=== PATIENT | female | born 1965 | race Caucasian/White ===

== ENCOUNTER 2017-03-02 20:51 | Emergency (ER) | payer MEDICARE ==
[2017-03-02 21:17] VITALS: BP 112/80
--- NOTE | 2017-03-02 22:02 | UC ---
Respiratory Complaint HPI - HPI Summary HPI Summary: The patient comes in today for: 1. Cough, rhinitis, chest heaviness, body aches: Onset: ONe week ago. Palliative/provocative: Nothing makes her symptoms better or worse. Activity does not make her chest heaviness worse. Quality: Heaviness Region: Chest, with no radiation. Severity: 2/10 Time: Constant. Associated symptoms: Dyspnea: None. Fevers: None. CAD risk factors: smoker: (-), HTN: (-), DM: (-), previous disease: (-), FmHx: (-), Cholesterol: (?) Rhinitis: clear. Cough: dry. Wheezing: None. * - History of Current Complaint Chief Complaint: UCRespiratory Stated Complaint: COUGH,ACHES,CHEST CONGESTION Time Seen by Provider: 03/02/17 21:57 Hx Obtained From: Patient Hx Last Menstrual Period: doesnt remember - Allergies/Home Medications Allergies/Adverse Reactions: Allergies Allergy/AdvReac Type Severity Reaction Status Date / Time Erythromycin Allergy Mild Eyes Verified 03/02/17 21:17 Itchy/Swollen/Red/Watery [place] AdvReac Intermediate Bleeding Verified 03/02/17 21:17 Home Medications: Home Medications LORazepam TAB(*) [Ativan 1 MG TAB (*)] 03/02/17 [History Confirmed 03/02/17] Venlafaxine EXT RELEASE CAP* [Effexor Xr CAP*] 03/02/17 [History] traZODone TAB* [Desyrel TAB*] 03/02/17 [History] PMH/Surg Hx/FS Hx/Imm Hx Previously Healthy: No Endocrine History Of: Denies: Diabetes, Thyroid Disease, Hyperthyroidism, Hypothyroidism, Dyslipidemia Cardiovascular History Of: Denies: Cardiac Disorders, Hypertension, Pacemaker/ICD, Myocardial Infarction , Congestive Heart Failure, Atrial Fibrillation, Deep Vein Thrombosis, Bleeding Disorders Respiratory History Of: Denies: COPD, Asthma, Bronchitis, Pneumonia, Pulmonary Embolism GI/ History Of: Denies: Gastroesophageal Reflux, Ulcer, Gastrointestinal Bleed, Gall Bladder Disease, Kidney Stones, Diverticulitis, Renal Disease, Urosepsis Neurological History Of: Denies: TIA, CVA, Dementia, Seizures, Migraine Psychological History Of: Reports: Depression Denies: Anxiety, Bipolar Disorder, Schizophrenia, Post Traumatic Stress Disorder Cancer History Of: Denies: Lung Cancer, Colorectal Cancer, Breast Cancer, Prostate Cancer, Cervical Cancer Other History Of: Negative For: HIV, Hepatitis B, Hepatitis C, Anticoagulant Therapy - Surgical History Surgical History: None - Family History Known Family History: Positive: Cardiac Disease, Diabetes - Social History Occupation: Unemployed Alcohol Use: Occasionally Substance Use Type: None Smoking Status (MU): Never Smoked Tobacco Review of Systems Constitutional: Negative Skin: Negative Eyes: Negative ENT: Nasal Discharge Respiratory: Cough Cardiovascular: Chest Pain Gastrointestinal: Negative Genitourinary: Negative Motor: Negative All Other Systems Reviewed And Are Negative: Yes Physical Exam Triage Information Reviewed: Yes Appearance: Well-Appearing, No Pain Distress, Well-Nourished Vital Signs: Initial Vital Signs Temp 98.5 F 03/02/17 21:14 Pulse 109 03/02/17 21:14 Resp 18 03/02/17 21:14 BP 112/80 03/02/17 21:14 Pulse Ox 99 03/02/17 21:14 Vital Signs Reviewed: Yes Eyes: Positive: Conjunctiva Clear. Negative: Discharge ENT: Positive: Hearing grossly normal. Negative: Pharyngeal erythema, Nasal congestion, Nasal drainage, TM bulging, TM dull, TM red, Tonsillar swelling, Tonsillar exudate Dental: Negative: Gross Decay/Caries @, Dental Fracture @ Neck: Positive: Supple, Nontender, No Lymphadenopathy. Negative: Nuchal Rigidity Respiratory: Positive: Chest non-tender, Lungs clear, No respiratory distress, No accessory muscle use. Negative: Crackles, Wheezing Cardiovascular: Positive: RRR, No Murmur Abdomen Description: Positive: Nontender, No Organomegaly, Soft. Negative: Distended, Guarding Musculoskeletal: Positive: Strength Intact, ROM Intact Neurological: Positive: Alert, Muscle Tone Normal Psychological: Positive: Age Appropriate Behavior, Consolable Skin: Negative: rashes, breakdown UC Diagnostic Evaluation - Laboratory O2 Sat by Pulse Oximetry: 99 Diagnostic Studies Comment: EKG: Rate: 97. Rhythm: Sinus. Ectopy: (-). Acute changes: (-) Respiratory Course/Dx - Course Course Of Treatment: Patient was told that her EKG did not show any obvious [place]. However, she was told that chest heaviness is a classic symptom for CAD, and that one can be having a [place] while having a negative EKG. The patient was told that I don't know for sure what is causing her chest heaviness. The patient was also told that there are many causes for chest heaviness--. some which are benign and some which are life-threatening. Furthermore, it was. mentioned that the life-threatening causes of chest heavinessp can present with. minimal , atypical, or even no symptoms. Becasue of these facts and the fact. that we don't have here all the testing methods commonly used to assess chest heaviness , and their timely resuts, the safest and therefore my recommendation is for the patient to go to. the [facility] ([facility] [place]) ER. She declines. She was told that I think she has a viral URI and that no antibiotics are recommended at this time. However, if she wanted an antibiotic prescription in the event she gets worse with symptoms suggesting a bacterial infection (as explained to the patient), we can prescribe one for her to take in that event. - Differential Dx/Diagnosis Provider Diagnoses: viral upper respiratory infection. Discharge - Discharge Plan Condition: Stable Disposition: HOME Patient Education Materials: Upper Respiratory Infection (ED) Referrals: Alka Toro MD [Primary Care Provider] - As Soon As Possible (Please contact your primary care provider's office as soon as you can for a follow-up evaluation of your chest heaviness since you are not going to the ER. )
== END 2017-03-02 22:47 | disposition left against medical advice (07) ==
LOC: UCEAST 20:51
DX: J06.9 Acute upper respiratory infection, unspecified (principal); F32.9 Major depressive disorder, single episode, unspecified; Z88.3 Allergy status to other anti-infective agents
CPT/HCPCS: 93005; 99212; G0463

== ENCOUNTER 2017-09-03 00:32 | Emergency (ER) | payer MEDICARE ==
[2017-09-03] MEDS ORDERED: Tetan/Diph/Pertus SYR(Tdap)* 0.5 ML SYR(BOOSTRIX) use SYR IM ONE ×2 (00:37→01:47)
[2017-09-03] MEDS ORDERED: Lidocaine 1%* 5 ML VIAL INJ ONE (00:55)
--- NOTE | 2017-09-03 01:01 | ED ---
Laceration/Wound HPI - HPI Summary HPI Summary: 52F presents with right thumb laceration today. She was cleaning a can when she cut her right thumb on it. She has full ROM of her thumb. She denies any numbness or tingling. Pain is 2/10. the area is not currently bleeding. She is not on blood thinners. She is right handed. 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 tetanus was three years ago. - History of Current Complaint Stated Complaint: RIGHT THUMB LAC Time Seen by Provider: 09/03/17 00:50 Hx Last Menstrual Period: doesnt remember Pain Intensity: 0 - Allergy/Home Medications Allergies/Adverse Reactions: Allergies Allergy/AdvReac Type Severity Reaction Status Date / Time Erythromycin Allergy Mild Eyes Verified 09/03/17 00:37 Itchy/Swollen/Red/Watery [place] AdvReac Intermediate Bleeding Verified 09/03/17 00:37 PMH/Surg Hx/FS Hx/Imm Hx Endocrine/Hematology History: Denies: Hx Anticoagulant Therapy, Hx Diabetes, Hx Thyroid Disease Cardiovascular History: Denies: Hx Congestive Heart Failure, Hx Deep Vein Thrombosis, Hx Hypertension , Hx Myocardial Infarction, Hx Pacemaker/ICD Respiratory History: Denies: Hx Asthma, Hx Chronic Obstructive Pulmonary Disease (COPD), Hx Lung Cancer, Hx Pneumonia, Hx Pulmonary Embolism GI History: Denies: Hx Gall Bladder Disease, Hx Gastrointestinal Bleed, Hx Ulcer, Hx Urosepsis History: Denies: Hx Kidney Stones, Hx Renal Disease Neurological History: Denies: Hx Dementia, Hx Migraine, Hx Seizures, Hx Transient Ischemic Attacks (TIA) Psychiatric History: Reports: Hx Depression Denies: Hx Anxiety, Hx Schizophrenia, Hx Bipolar Disorder Infectious Disease History: No Infectious Disease History: Denies: Hx Clostridium Difficile, Hx Hepatitis, Hx Human Immunodeficiency Virus (HIV), Hx of Known/Suspected MRSA, Hx Shingles, Hx Tuberculosis, Hx Known/ Suspected VRE, Hx Known/Suspected VRSA, History Other Infectious Disease, Traveled Outside the [place] in Last 30 Days - Family History Known Family History: Positive: Cardiac Disease, Diabetes - Social History Alcohol Use: Occasionally Substance Use Type: Reports: None Smoking Status (MU): Never Smoked Tobacco Review of Systems Negative: Fever Negative: Chest Pain Negative: Shortness Of Breath Positive: Other - laceration right thumb All Other Systems Reviewed And Are Negative: Yes Physical Exam Triage Information Reviewed: Yes Vital Signs On Initial Exam: Initial Vitals Temp Pulse Resp BP Pulse Ox 97.0 F 105 18 136/83 97 09/03/17 00:33 09/03/17 00:33 09/03/17 00:33 09/03/17 00:33 09/03/17 00:33 Vital Signs Reviewed: Yes Appearance: Positive: Well-Appearing Skin: Positive: Warm, Dry, Other - 1cm superficial laceration of proxmial phlanx right thumb Head/Face: Positive: Normal Head/Face Inspection Eyes: Positive: Normal, Conjunctiva Clear Respiratory/Lung Sounds: Positive: Clear to Auscultation, Breath Sounds Present Cardiovascular: Positive: Normal, RRR Musculoskeletal: Positive: Strength/ROM Intact - right thumb, Other - capillary refill<2 secs, sensation grossly intact Neurological: Positive: Normal Procedures - Laceration/Wound Repair 1 Location: Other - right thumb Description: Linear Anesthesia: Local, 1.0% Length, Depth and Shape: 1cm superficial Betadine Prep?: Yes Irrigated w/ Saline (ccs): 1,000 Laceration/Wound Explored: clean, no foreign body removed Closure: Single Layer Suture Type: Prolene - 4-0 Number of Sutures: 2 Layer Closure?: Yes Sterile Dressing Applied?: No - telfa and then giuliana wrapped Diagnostics - Vital Signs Vital Signs Temp Pulse Resp BP Pulse Ox 09/03/17 00:33 97.0 F 105 18 136/83 97 - Laboratory Lab Statement: Any lab studies that have been ordered have been reviewed, and results considered in the medical decision making process. Laceration Repair Course/Dx - Course Course Of Treatment: 52F presents with right thumb laceration today. She was cleaning a can when she cut her right thumb on it. She has full ROM of her thumb. She denies any numbness or tingling. Pain is 2/10. the area is not currently bleeding. She is not on blood thinners. on exam has 1cm laceration of distal phlanx of right thumb near MCP joint. cleaned and placed 2 sutures and placed in giuliana. patient understands and agrees with plan. - Differential Dx Differental Diagnoses: Abrasion, Avulsion, Laceration - Clinical Impression Provider Diagnoses: Laceration of right thumb Discharge - Discharge Plan Condition: Good Disposition: HOME Patient Education Materials: Care For Your Stitches (ED) Referrals: Alka Toro MD [Primary Care Provider] - Additional Instructions: Keep covered, change dressing once a day Keep area clean and dry for 48 hours Take Tylenol for pain every 6 hours Return to ED, urgent care, or primary for suture removal in 10-14 days Return to ED if develop signs of infection such as fever, spreading redness, or pus formation or any new or worsening symptoms
[2017-09-03 01:56] VITALS: BP 130/80
== END 2017-09-03 01:56 | disposition home or self-care (01) ==
LOC: ED 00:32
DX: S61.011A Laceration without foreign body of right thumb without damage to nail, initial encounter (principal); W45.8XXA Other foreign body or object entering through skin, initial encounter; Y93.9 Activity, unspecified; Y92.9 Unspecified place or not applicable
CPT/HCPCS: 12001; 90471; 90715; 99282

== ENCOUNTER → 2017-09-14 21:56 | Emergency (ER) | payer MEDICARE ==
[2017-09-14 22:03] VITALS: BP 120/70
--- NOTE | 2017-09-14 22:09 | UC ---
Pankaj Coughlin Nikita, scribed for Sameer Colunga MD on 09/14/17 at 2202 . HPI Wound/Suture Re-check - HPI Summary HPI Summary: This patient is a 52 year old F presenting to [facility] to get her stitches removed. The CC is described as a R thumb laceration that was stitched up on 09/03/17. The patient does not complain of any pain. - History Of Current Complaint Stated Complaint: STITCHES REMOVED Hx Obtained From: Patient Hx Last Menstrual Period: doesnt remember Onset/Duration: Resolved Procedure Type: Sutures on R thumb, 09/03/17 - Allergies/Home Medications Allergies/Adverse Reactions: Allergies Allergy/AdvReac Type Severity Reaction Status Date / Time Erythromycin Allergy Mild Eyes Verified 09/14/17 22:03 Itchy/Swollen/Red/Watery [place] AdvReac Intermediate Bleeding Verified 09/14/17 22:03 PMH/Surg Hx/FS Hx/Imm Hx Endocrine History: Other Other Endocrine History: No DM Cardiovascular History: Other Other Cardiovascular History: No CHF Other History Of: Negative For: HIV, Hepatitis B, Hepatitis C, Anticoagulant Therapy - Surgical History Surgical History: None - Family History Known Family History: Positive: Cardiac Disease, Diabetes - Social History Alcohol Use: Occasionally Substance Use Type: None Smoking Status (MU): Never Smoked Tobacco Review of Systems Constitutional: Other - no fever Musculoskeletal: Other: - R thumb laceration (has stitches) All Other Systems Reviewed And Are Negative: Yes Physical Exam Triage Information Reviewed: Yes Appearance: Well-Appearing, No Pain Distress Vital Signs: Initial Vital Signs Temp 98.3 F 09/14/17 21:57 Pulse 70 09/14/17 21:57 Resp 15 09/14/17 21:57 BP 120/70 09/14/17 21:57 Pulse Ox 99 09/14/17 21:57 Vital Signs Reviewed: Yes Eye Exam: Other - EOMI, VALENITNE ENT Exam: Normal Neck: Positive: Supple, Nontender Respiratory: Positive: Lungs clear, Normal breath sounds Cardiovascular: Positive: RRR Abdomen Description: Positive: Nontender, Soft Bowel Sounds: Positive: Present Musculoskeletal Exam: Other - 1cm laceration on proximal R thumb; 2 simple, interrupted sutures Musculoskeletal: Positive: Strength Intact, ROM Intact Neurological Exam: Normal - normal, sensory/motor intact, A&O x3 Neurological: Positive: Alert Psychological Exam: Other - affect/mood appropriate Skin Exam: Other - warm, color reflects adequate perfusion, dry; no erythema, no drainage at site of sutures Course/Dx - Course Course Of Treatment: This patient is a 52 year old F presenting to [facility] to get her stitches removed. The CC is described as a R thumb laceration that was stitched up on 09/03/17. The patient does not complain of any pain. Medications reviewed. Allergies noted. Pt will be discharged. Pt is agreeable with this plan. 2 SUTURES REMOVE FROM RT THUMB - Differential Dx - Laceration/Wound Provider Diagnoses: SUTURE REMOVAL RIGHT THUMB Discharge - Discharge Plan Condition: Stable Disposition: HOME Patient Education Materials: Stitches Removal (ED) Referrals: Alka Toro MD [Primary Care Provider] - Additional Instructions: FOLLOW UP WITH YOUR DOCTOR. GET RECHECKED FOR ANY WORSENING OF YOUR CONDITION OR QUESTIONS OR CONCERNS. The documentation as recorded by the Pankaj dallas Nikita accurately reflects the service I personally performed and the decisions made by me, Sameer Colunga MD.
== END | disposition home or self-care (01) ==
LOC: UCEAST 21:56
DX: S61.011D Laceration without foreign body of right thumb without damage to nail, subsequent encounter (principal); W45.8XXD Other foreign body or object entering through skin, subsequent encounter; Z88.1 Allergy status to other antibiotic agents
CPT/HCPCS: 99211; G0463

== ENCOUNTER 2018-06-07 18:30 | Emergency (ER) | payer MEDICARE ==
[2018-06-07 18:58] LABS: ABS Basophils 0.1 10^3/ul (0-0.2); ABS Eosinophils 0.3 10^3/ul (0-0.6); ABS Lymphocytes 2.5 10^3/ul (1.0-4.8); ABS Monocytes 0.8 10^3/ul (0-0.8); ABS Neutrophils 6.9 10^3/ul (1.5-7.7); ABS Nucleated RBC 0 10^3/ul; Eosinophil % 2.8 % (0-6); Hematocrit 42 % (35-47); Hemoglobin 14.6 g/dl (12.0-16.0); Lymphocyte % 23.8 % (25-47); Mean Corpuscular HGB Conc 35 g/dl (31-36); Mean Corpuscular Hemoglobin 30 pg (27-31); Mean Corpuscular Volume 87 fL (80-97); Mean Platelet Volume 7.3 um3 (7.4-10.4); Nucleated Red Blood Cells % 0.1; Platelet Count 396 10^3/ul (150-450); Red Blood Count 4.85 10^6/ul (4.00-5.40); Red Cell Distribution Width 14 % (10.5-15); White Blood Count 10.6 10^3/ul (3.5-10.8)
[2018-06-07 19:11] LABS: EGFR Non-African American 66.9 (>60)
--- NOTE | 2018-06-07 19:20 | RAD ---
INDICATION: Chest pain. COMPARISON: Comparison is made with a prior study from July 26, 2015. TECHNIQUE: A portable view of the chest was obtained. FINDINGS: The heart is within normal limits in size. There is a density which projects over the left paraspinal region at the left lung base. The lungs are clear. No pleural effusion is seen. IMPRESSION: THERE IS A DENSITY WHICH PROJECTS IN THE LEFT PARASPINAL REGION AT THE LEFT LUNG BASE. RECOMMEND PA AND LATERAL CHEST FILMS FOR FURTHER EVALUATION.
--- NOTE | 2018-06-07 19:37 | ED ---
HPI Chest Pain - HPI Summary HPI Summary: This is lenie Armen Awad documenting for attending Keyur Hartmann M.D. Patient is a 52 y/o F w/ c/o chest pain onsetting today a few hours ago. She reports she was sitting in front of her computer when pain onset occurred. On triage, pain is noted to be located at substernal area and RUQ. She denies N/V and sweating but notes the presence of SOB. She reports that she does not feel like she will lose consciousness. In the room, pain is rated 3/10 and patient describes pain as, "not bad". On triage, deep breaths are noted to aggravate pain, nothing is noted to alleviate pain. Allergies and home medications are noted. - History of Current Complaint Chief Complaint: EDChestPainROMI Time Seen by Provider: 06/07/18 18:55 Hx Obtained From: Patient Hx Last Menstrual Period: doesnt remember Onset/Duration: Started Hours Ago - "a couple hours ago" Timing: Constant Current Severity: Mild Pain Intensity: 3 Pain Scale Used: 0-10 Numeric - 3/10 Chest Pain Location: Discrete at: - substernal, RUQ Chest Pain Radiates: No Aggravating Factor(s): Deep Breaths Alleviating Factor(s): Nothing Associated Signs and Symptoms: Positive: Shortness of Breath, Other: - NEGATIVE : feelings of near LOC. Negative: Diaphoresis, Nausea, Vomiting - Allergy/Home Medications Allergies/Adverse Reactions: Allergies Allergy/AdvReac Type Severity Reaction Status Date / Time erythromycin base Allergy Eyes Verified 06/07/18 18:39 Itchy/Swollen/Red/Watery [place] Allergy Bleeding Verified 06/07/18 18:39 PMH/Surg Hx/FS Hx/Imm Hx Endocrine/Hematology History: Denies: Hx Anticoagulant Therapy, Hx Diabetes, Hx Thyroid Disease Cardiovascular History: Denies: Hx Congestive Heart Failure, Hx Deep Vein Thrombosis, Hx Hypertension , Hx Myocardial Infarction, Hx Pacemaker/ICD Respiratory History: Denies: Hx Asthma, Hx Chronic Obstructive Pulmonary Disease (COPD), Hx Lung Cancer, Hx Pneumonia, Hx Pulmonary Embolism GI History: Denies: Hx Gall Bladder Disease, Hx Gastrointestinal Bleed, Hx Ulcer, Hx Urosepsis History: Denies: Hx Kidney Stones, Hx Renal Disease Neurological History: Denies: Hx Dementia, Hx Migraine, Hx Seizures, Hx Transient Ischemic Attacks (TIA) Psychiatric History: Reports: Hx Depression Denies: Hx Anxiety, Hx Schizophrenia, Hx Bipolar Disorder - Immunization History Date of Tetanus Vaccine: unknown Infectious Disease History: No Infectious Disease History: Denies: Hx Clostridium Difficile, Hx Hepatitis, Hx Human Immunodeficiency Virus (HIV), Hx of Known/Suspected MRSA, Hx Shingles, Hx Tuberculosis, Hx Known/ Suspected VRE, Hx Known/Suspected VRSA, History Other Infectious Disease, Traveled Outside the [place] in Last 30 Days - Family History Known Family History: Positive: Cardiac Disease, Diabetes - Social History Alcohol Use: Occasionally Substance Use Type: Reports: None Smoking Status (MU): Never Smoked Tobacco Review of Systems Negative: Skin Diaphoresis Positive: Chest Pain - substernal area, RUQ Positive: Shortness Of Breath Negative: Vomiting, Nausea Neurological: Other - NEGATIVE: feelings of near LOC All Other Systems Reviewed And Are Negative: Yes Physical Exam - Summary Physical Exam Summary: GENERAL NORMAL EXAM: VITAL SIGNS: Reviewed. GENERAL: Patient is a well-developed and nourished female who is lying comfortable in the stretcher. Patient is not in any acute respiratory distress. HEAD AND FACE: No signs of trauma. No ecchymosis, hematomas or skull depressions. No sinus tenderness. EYES: PERRLA, EOMI x 2, No injected conjunctiva, no nystagmus. EARS: Hearing grossly intact. Ear canals and tympanic membranes are within normal limits. MOUTH: Oropharynx within normal limits. NECK: Supple, trachea is midline, no adenopathy, no JVD, no carotid bruit, no c- spine tenderness, neck with full ROM. CHEST: Symmetric, no tenderness at palpation LUNGS: Clear to auscultation bilaterally. No wheezing or crackles. CVS: Regular rate and rhythm, S1 and S2 present, no murmurs or gallops appreciated. ABDOMEN: Soft, non-tender. No signs of distention. No rebound no guarding, and no masses palpated. Bowel sounds are normal. EXTREMITIES: FROM in all major joints, no edema, no cyanosis or clubbing. NEURO: Alert and oriented x 3. No acute neurological deficits. Speech is normal and follows commands. SKIN: Dry and warm Triage Information Reviewed: Yes Vital Signs On Initial Exam: Initial Vitals Temp Pulse Resp BP Pulse Ox 97.3 F 90 17 152/85 97 06/07/18 18:34 06/07/18 18:34 06/07/18 18:34 06/07/18 18:34 06/07/18 18:34 Vital Signs Reviewed: Yes Diagnostics - Vital Signs Vital Signs Temp Pulse Resp BP Pulse Ox 06/07/18 18:51 83 12 140/94 98 06/07/18 18:34 97.3 F 90 17 152/85 97 - Laboratory Lab Results: Lab Results 06/07/18 06/07/18 06/07/18 Range/Units 18:42 18:42 18:42 WBC 10.6 (3.5-10.8) 10^3/ul RBC 4.85 (4.00-5.40) 10^6/ul Hgb 14.6 (12.0-16.0) g/dl Hct 42 (35-47) % MCV 87 (80-97) fL MCH 30 (27-31) pg MCHC 35 (31-36) g/dl RDW 14 (10.5-15) % Plt Count 396 (150-450) 10^3/ul MPV 7.3 L (7.4-10.4) um3 Neut % (Auto) 65.3 (38-83) % Lymph % (Auto) 23.8 L (25-47) % [place] % (Auto) 7.5 H (0-7) % Eos % (Auto) 2.8 (0-6) % Baso % (Auto) 0.6 (0-2) % Absolute Neuts (auto) 6.9 (1.5-7.7) 10^3/ul Absolute Lymphs (auto) 2.5 (1.0-4.8) 10^3/ul Absolute Monos (auto) 0.8 (0-0.8) 10^3/ul Absolute Eos (auto) 0.3 (0-0.6) 10^3/ul Absolute Basos (auto) 0.1 (0-0.2) 10^3/ul Absolute Nucleated RBC 0 10^3/ul Nucleated RBC % 0.1 Sodium 140 (135-145) mmol/L Potassium 3.8 (3.5-5.0) mmol/L Chloride 103 (101-111) mmol/L Carbon Dioxide 27 (22-32) mmol/L Anion Gap 10 (2-11) mmol/L BUN 18 (6-24) mg/dL Creatinine 0.89 (0.51-0.95) mg/dL Est GFR ( Amer) 80.9 (>60) Est GFR (Non-Af Amer) 66.9 (>60) BUN/Creatinine Ratio 20.2 H (8-20) Glucose 99 (70-100) mg/dL Lactic Acid 1.0 (0.5-2.0) mmol/L Calcium 10.2 (8.6-10.3) mg/dL Total Bilirubin 0.50 (0.2-1.0) mg/dL AST 33 (13-39) U/L ALT 40 (7-52) U/L Alkaline Phosphatase 145 H (34-104) U/L Troponin I 0.01 (<0.04) ng/mL Total Protein 8.6 (6.4-8.9) g/dL Albumin 5.0 (3.2-5.2) g/dL Globulin 3.6 (2-4) g/dL Albumin/Globulin Ratio 1.4 (1-3) Result Diagrams: 06/07/18 18:42 06/07/18 18:42 Lab Statement: Any lab studies that have been ordered have been reviewed, and results considered in the medical decision making process. - Radiology CXR Xray Interpretation: Positive (See Comments) Radiology Interpretation Completed By: Radiologist - There is a density which projects in the left paraspinal region at the left lung base. Recommend PA and lateral chest films for further evaluation. This report was reviewed by ED physician. - EKG 1856 Cardiac Rate: NL - Rate of 77 BPM EKG Rhythm: Sinus Rhythm EKG Interpretation: Normal axis Re-Evaluation - Re-Evaluation First Eval Re-Evaluation Time: 21:53 Comment: Discussed care of patient and results of tests. Informed patient will be discharged to home and discussed follow-up plan. Chest Pain Course/Dx - Course Assessment/Plan: This patient is a 52-year-old female who presents to the emergency department with The chief complaint of having chest pain. She reports that the chest pain is retrosternal with no radiation, she reports pressure-like pain with no nausea vomiting or diaphoresis. Pain is only 2 or 3 out of 10. In the ED course the patient was given Toradol for the pain and symptoms improved. Blood test results without any significant abnormality. 2 troponin is 4 hours apart 0.01. Therefore I have low suspicion for acute coronary syndrome. The patient is not tachycardic or hypoxic therefore I have no suspicion for PE. Therefore at this time I discussed my findings and test results with the patient and the need to follow-up with primary care physician. At this point the patient is hemoglobin medically stable alert and oriented 3. I discussed all the findings and test results with the patient. Patient was instructed to return to the emergency room immediately if any of the symptoms return or worsens. Plan of care was discussed with the patient and understands and agrees. All questions were answered at patient satisfaction. There were no further complaints or concerns. Lung exam before discharge: CTA B/L. Good air exchange. No wheezing or crackles heard. CVS: S1 and S2 present. No murmurs appreciated. Patient is alert and oriented x 3. Patient is hemodynamically stable. Patient will be discharged home with follow up PCP in the next 2-3 days - Diagnoses Provider Diagnoses: Atypical chest pain Discharge - Sign-Out/Discharge Documenting (check all that apply): Patient Departure - discharge - Discharge Plan Condition: Stable Disposition: HOME Patient Education Materials: Chest Pain (ED) Referrals: Alka Toro MD [Primary Care Provider] - 3 Days Additional Instructions: Return to ED for any new or worsening symptoms.
[2018-06-07] MEDS ORDERED: Ketorolac INJ* 30 MG/ML 1 ML VIAL IV PUSH ONE (20:32)
[2018-06-07 22:31] VITALS: BP 139/95
== END 2018-06-07 22:33 | disposition home or self-care (01) ==
LOC: ED 18:30
DX: R07.89 Other chest pain (principal); R06.02 Shortness of breath
CPT/HCPCS: 36415; 71045; 80053; 83605; 84484; 85025; 93005; 96374; 99283; J1885

== ENCOUNTER 2018-08-30 20:19 | Emergency (ER) | payer MEDICARE ==
[2018-08-30 20:31] VITALS: BP 146/82
--- NOTE | 2018-08-30 20:32 | UC ---
Respiratory Complaint HPI - HPI Summary HPI Summary: 53 female presents with fever, cough, fatigue, and body aches for the last 3 days. She says her fever was 102.7F before arriving tonight. She has been taking tylenol for her discomfort with no relief. Denies sinus symptoms, sore throat, SOB, chest pain, abdominal pain, n/v. - History of Current Complaint Chief Complaint: UCRespiratory Stated Complaint: FEVER,COUGH Time Seen by Provider: 08/30/18 20:31 Hx Obtained From: Patient Hx Last Menstrual Period: doesnt remember Onset/Duration: Gradual Onset Severity Initially: Mild Severity Currently: Mild Pain Intensity: 4 Pain Scale Used: 0-10 Numeric Character: Cough: Nonproductive - Allergies/Home Medications Allergies/Adverse Reactions: Allergies Allergy/AdvReac Type Severity Reaction Status Date / Time erythromycin base Allergy Eyes Verified 08/30/18 20:31 Itchy/Swollen/Red/Watery lithium Allergy Bleeding Verified 08/30/18 20:31 Home Medications: Home Medications Sertraline* [Zoloft*] 1 tab PO DAILY 08/30/18 [History Confirmed 08/30/18] PMH/Surg Hx/FS Hx/Imm Hx Psychological History: Anxiety, Depression Other History Of: Negative For: HIV, Hepatitis B, Hepatitis C, Anticoagulant Therapy - Surgical History Surgical History: None - Family History Known Family History: Positive: Cardiac Disease, Diabetes - Social History Lives: With Family Alcohol Use: Occasionally Substance Use Type: None Smoking Status (MU): Never Smoked Tobacco Review of Systems Constitutional: Fever, Fatigue, Other - Body aches Skin: Negative Eyes: Negative ENT: Negative Respiratory: Cough Cardiovascular: Negative Neurovascular: Negative Neurological: Negative Psychological: Negative All Other Systems Reviewed And Are Negative: Yes Physical Exam - Summary Physical Exam Summary: GENERAL: NAD. WDWN. No pain distress. SKIN: No rashes, sores, lesions, or open wounds. HEENT: Head: AT/NC Eyes: Conjunctiva clear without inflammation or discharge. Ears: Hearing grossly normal. TMs intact, no bulging, erythema, or edema. Nose: Nasal mucosa pink and moist. NTTP maxillary and frontal sinus. Throat: Posterior oropharynx without exudates, erythema, or tonsillar enlargement. Uvula midline. NECK: Supple. Nontender. No lymphadenopathy. CHEST: Mild wheezing throughout. No r/r. No accessory muscle use. Breathing comfortably and in no distress. CV: RRR. Without m/r/g. Pulses intact. Cap refill <2seconds NEURO: Alert. PSYCH: Age appropriate behavior. Triage Information Reviewed: Yes Vital Signs: Initial Vital Signs Temp 98.9 F 08/30/18 20:28 Pulse 117 08/30/18 20:28 Resp 18 08/30/18 20:28 BP 146/82 08/30/18 20:28 Pulse Ox 98 08/30/18 20:28 Laboratory Tests 08/30/18 20:41 Influenza A (Rapid) Negative Influenza B (Rapid) Negative Vital Signs Reviewed: Yes Diagnostic Evaluation - Laboratory O2 Sat by Pulse Oximetry: 98 Respiratory Course/Dx - Course Course Of Treatment: CXR: No radiologist reading after 1800, therefore wet read by myself is negative for acute dz. Duoneb: could not tolerate taste because it made her gag. Duoneb was stopped early. Suspect viral illness/bronchitis. Pt is requesting antibiotic therapy - will treat with amoxicillin. - Differential Dx/Diagnosis Provider Diagnoses: Bronchitis Discharge - Sign-Out/Discharge Documenting (check all that apply): Patient Departure All imaging exams completed and their final reports reviewed: No - Discharge Plan Condition: Stable Disposition: HOME Prescriptions: Amoxicillin PO (*) [Amoxicillin 500 MG CAP*] 500 mg PO Q12H #14 cap Patient Education Materials: Acute Bronchitis (ED) Referrals: Alka Toro MD [Primary Care Provider] - Additional Instructions: If you develop a fever, shortness of breath, chest pain, new or worsening symptoms - please call your PCP or go to the ED. Your blood pressure was high at todays visit. Please see your primary provider within 4 weeks for recheck and re-evaluation. - Billing Disposition and Condition Condition: STABLE Disposition: Home
[2018-08-30] MEDS ORDERED: Albuterol/Ipratropium NEB.SOL* Albuterol 2.5 MG/Ipratropium 0.5 MG 3 ML INH ONE (20:37)
[2018-08-30] MEDS ORDERED: Amoxicillin PO (*) 500 MG CAP PO ONE (21:08)
--- NOTE | 2018-08-31 07:40 | RAD ---
INDICATION: Cough COMPARISON: Most recent comparison chest x-rays dated June 07, 2018 TECHNIQUE: PA and lateral views of the chest were obtained. FINDINGS: The heart and mediastinum are normal in size and contour. The lungs are grossly clear. There is no evidence of large pleural effusion. Visualized bones are normal for the patient's age. There is no radiographic evidence of free air beneath the diaphragm IMPRESSION: No radiographic evidence of acute cardiopulmonary disease.
--- NOTE | 2018-09-04 14:43 | UC ---
- Progress Note Progress Note: Patient Name: GILDARDO ERICKSON Medical Record#: [id number] Ordering Physician: Jelani MYLES Acct.#: [id number] : 1965 Age: 53 Sex: F Location: [facility] Exam Date: 08/30/182036 ADM Status: DEP ER Order Information: CHEST PA & LAT 2 VWS Accession Number: [id number] CPT: 66455 INDICATION: Cough COMPARISON: Most recent comparison chest x-rays dated June 07, 2018 TECHNIQUE: PA and lateral views of the chest were obtained. FINDINGS: The heart and mediastinum are normal in size and contour. The lungs are grossly clear. There is no evidence of large pleural effusion. Visualized bones are normal for the patient's age. There is no radiographic evidence of free air beneath the diaphragm IMPRESSION: No radiographic evidence of acute cardiopulmonary disease. <Electronically signed by Tigre Jameson MD in [place]> 08/31/18735 Dictated By: Tigre Jameson MD Dictated Date/Time: 08/31/18735 Transcribed Date/Time: 08/31/18734 Copy to: CC:Barrie Chaidez MD; Alka Toro MD; Jelani MYLES Imaging - [facility] [address] [place] [address] ph ([phone]) ph ([phone]) ph ([phone]) This report is only to be considered final once signed by the Provider(s) as displayed in the "<Electronically Signed by >" field (s). Absence of a signature indicates the report is in a draft status and still needs to be finalized. In the event this document was created by someone other than the signing Provider, the individual initiating the document will be listed in the "Entered by:" or "Dictated by:" kaur. 1 of 1 Discharge - Sign-Out/Discharge Documenting (check all that apply): Post-Discharge Follow Up All imaging exams completed and their final reports reviewed: Yes - Discharge Plan Condition: Stable Disposition: HOME Prescriptions: Amoxicillin PO (*) [Amoxicillin 500 MG CAP*] 500 mg PO Q12H #14 cap Patient Education Materials: Acute Bronchitis (ED) Referrals: Alka Troo MD [Primary Care Provider] - Additional Instructions: If you develop a fever, shortness of breath, chest pain, new or worsening symptoms - please call your PCP or go to the ED. Your blood pressure was high at todays visit. Please see your primary provider within 4 weeks for recheck and re-evaluation. - Billing Disposition and Condition Condition: STABLE Disposition: Home
== END 2018-08-30 21:20 | disposition home or self-care (01) ==
LOC: UCEAST 20:19
DX: J40 Bronchitis, not specified as acute or chronic (principal); F41.9 Anxiety disorder, unspecified; F32.9 Major depressive disorder, single episode, unspecified; Z88.1 Allergy status to other antibiotic agents; Z88.8 Allergy status to other drugs, medicaments and biological substances
CPT/HCPCS: 71046; 99212; A9270-GY; G0463